=== PATIENT | female | born 2000 | race Caucasian/White ===

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

== ENCOUNTER 2020-03-06 09:48 | Emergency (ER) | payer OTHER ==
[2020-03-06 10:08] VITALS: BP 135/84; PULSE 98
[2020-03-06] MEDS ORDERED: Sodium Chloride 0.9% 1,000 ML IV STA (10:13)
[2020-03-06] MEDS ORDERED: Sodium Chloride 0.9% 10 ML Syringe FLUSH PRN (10:13)
[2020-03-06] MEDS ORDERED: Ondansetron 4 MG/2 ML SDV IVPUSH ONE (10:13)
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
--- NOTE | 2020-03-06 11:40 | CT ---
Head CT Technique: Multiple axial sections through the brain were obtained. Intravenous contrast was not utilized. Comparison: No prior intracranial imaging is available. Findings: Ventricles along with basal cisterns and sulci over the convexities are within normal limits for the patient's age. No abnormal parenchymal densities are seen. No evidence of intracranial hemorrhage. No midline shift or mass-effect is seen. Bone window settings were reviewed. No acute calvarial finding is seen. Visualized paranasal sinuses and mastoid sinuses show nothing acute. Impression: 1. Nothing acute is identified on noncontrast head CT exam. Diagnostic code #1 This report was dictated in MDT
== END 2020-03-06 12:23 | disposition home or self-care (01) ==
LOC: JD.ED 09:48
DX: S09.90XA Unspecified injury of head, initial encounter (principal); R74.8 Abnormal levels of other serum enzymes; R11.2 Nausea with vomiting, unspecified; V89.2XXA Person injured in unspecified motor-vehicle accident, traffic, initial encounter
CPT/HCPCS: 36415; 70450; 80053; 81001; 83690; 84703; 85025; 96361; 96374; 99284; A9270; J2405; J7030

== ENCOUNTER 2020-12-01 19:15 | Emergency (ER) | payer SELFPAY ==
[2020-12-01 19:36] VITALS: BP 126/89; PULSE 95
--- NOTE | 2020-12-01 19:53 | EDM.PDOC ---
ED HPI GENERAL MEDICAL PROBLEM - General Chief Complaint: Gastrointestinal Problem Stated Complaint: VOMITING Time Seen by Provider: 12/01/20 19:52 - History of Present Illness INITIAL COMMENTS - FREE TEXT/NARRATIVE: 20-year-old female presents the emergency room with nausea vomiting abdominal pain. This started yesterday she started out feeling lightheaded and nauseated lost all her appetite yesterday. Today she has been unable to keep anything down and is vomited frequently several times an hour. She is also had lots of loose stools. She has some abdominal discomfort usually associated with loose stools and vomiting. She is not aware of any fevers or chills. Abdomen Pain Score (Numeric/FACES): 6 - Related Data Allergies Allergy/AdvReac Type Severity Reaction Status Date / Time No Known Allergies Allergy Verified 03/06/20 10:08 Home Meds: Home Meds Ondansetron [Zofran ODT] 4 mg PO Q6H PRN #20 tab.dis 03/06/20 [Rx] Ondansetron [Zofran ODT] 4 mg PO Q6H PRN #12 tab.dis 12/01/20 [Rx] Past Medical History - Past Health History Medical/Surgical History: Denies Medical/Surgical History Social & Family History - Family History Family Medical History: No Pertinent Family History - Tobacco Use Tobacco Use Status *Q: Never Tobacco User - Caffeine Use Caffeine Use: Reports: Tea - Recreational Drug Use Recreational Drug Type: Reports: Marijuana/Hashish Recreational Drug Use Frequency: Monthly ED ROS GENERAL - Review of Systems Review Of Systems: See Below Constitutional: Reports: Weakness, Fatigue, Decreased Appetite. Denies: Fever, Chills HEENT: Reports: No Symptoms Respiratory: Reports: No Symptoms Cardiovascular: Reports: No Symptoms Endocrine: Reports: No Symptoms GI/Abdominal: Reports: Abdominal Pain, Diarrhea, Nausea, Vomiting Musculoskeletal: Reports: No Symptoms Skin: Reports: No Symptoms Neurological: Reports: No Symptoms Psychiatric: Reports: No Symptoms Hematologic/Lymphatic: Reports: No Symptoms Immunologic: Reports: No Symptoms ED EXAM, GI/ABD - Physical Exam Exam: See Below Exam Limited By: No Limitations General Appearance: Alert, No Apparent Distress Head: Atraumatic, Normocephalic Neck: Normal Inspection, Supple, Non-Tender, Full Range of Motion Respiratory/Chest: No Respiratory Distress, Lungs Clear, Normal Breath Sounds Cardiovascular: Regular Rate, Rhythm, No Edema, No Murmur GI/Abdominal Exam: Normal Bowel Sounds, Soft, Other (Diffuse tenderness slightly worse in the right lower quadrant compared to the upper quadrants left lower quadrant is nontender no rigidity rebound or guarding appreciated on initial exam) Back Exam: Normal Inspection. No: CVA Tenderness (L), CVA Tenderness (R) Extremities: Normal Inspection, Normal Range of Motion Neurological: Alert, Oriented Skin Exam: Warm, Dry, Intact Course - Vital Signs Last Recorded V/S: Last Vital Signs Temp 36.5 C 12/01/20 19:34 Pulse 95 12/01/20 19:34 Resp 20 12/01/20 19:34 BP 126/89 12/01/20 19:34 Pulse Ox 100 12/01/20 19:34 - Orders/Labs/Meds Labs: Laboratory Tests 12/01/20 12/01/20 12/01/20 Range/Units 20:30 20:30 20:30 WBC 13.62 H (3.98-10.04) K/mm3 RBC 4.69 (3.98-5.22) M/mm3 Hgb 14.2 (11.2-15.7) gm/dl Hct 41.4 (34.1-44.9) % MCV 88.3 (79.4-94.8) fl MCH 30.3 (25.6-32.2) pg MCHC 34.3 (32.2-35.5) g/dl RDW Std Deviation 39.5 (36.4-46.3) fL Plt Count 320 (182-369) K/mm3 MPV 9.5 (9.4-12.3) fl Neut % (Auto) 91.1 H (34.0-71.1) % Lymph % (Auto) 5.4 L (19.3-51.7) % [place] % (Auto) 3.3 L (4.7-12.5) % Eos % (Auto) 0 L (0.7-5.8) Baso % (Auto) 0.1 (0.1-1.2) % Neut # (Auto) 12.40 H (1.56-6.13) K/mm3 Lymph # (Auto) 0.73 L (1.18-3.74) K/mm3 [place] # (Auto) 0.45 H (0.24-0.36) K/mm3 Eos # (Auto) 0.00 L (0.04-0.36) K/mm3 Baso # (Auto) 0.02 (0.01-0.08) K/mm3 Manual Slide Review Abnormal smear Sodium 140 (136-145) mEq/L Potassium 3.9 (3.5-5.1) mEq/L Chloride 104 (98-107) mEq/L Carbon Dioxide 23 (21-32) mEq/L Anion Gap 16.9 H (5-15) BUN 12 (7-18) mg/dL Creatinine 0.8 (0.55-1.02) mg/dL Est Cr Clr Drug Dosing 96.06 mL/min Estimated GFR (MDRD) > 60 (>60) mL/min BUN/Creatinine Ratio 15.0 (14-18) Glucose 139 H (74-106) mg/dL Calcium 9.6 (8.5-10.1) mg/dL Total Bilirubin 1.6 H (0.2-1.0) mg/dL AST 15 (15-37) U/L ALT 24 (14-59) U/L Alkaline Phosphatase 106 (46-116) U/L Total Protein 7.5 (6.4-8.2) g/dl Albumin 3.9 (3.4-5.0) g/dl Globulin 3.6 gm/dL Albumin/Globulin Ratio 1.1 (1-2) Lipase 59 L (73-393) U/L HCG, Qual Negative (NEGATIVE) Urine Color (Yellow) Urine Appearance (Clear) Urine pH (5.0-8.0) Ur Specific [place] (1.005-1.030) Urine Protein (Negative) Urine Glucose (UA) (Negative) Urine Ketones (Negative) Urine Occult Blood (Negative) Urine Nitrite (Negative) Urine Bilirubin (Negative) Urine Urobilinogen (0.2-1.0) Ur Leukocyte Esterase (Negative) Urine RBC (0-5) /hpf Urine WBC (0-5) /hpf Ur Squamous Epith Cells (0-5) /hpf Urine Bacteria (FEW) /hpf Urine Mucus (FEW) /hpf 03// Range/Units 21:03 WBC (3.98-10.04) K/mm3 RBC (3.98-5.22) M/mm3 Hgb (11.2-15.7) gm/dl Hct (34.1-44.9) % MCV (79.4-94.8) fl MCH (25.6-32.2) pg MCHC (32.2-35.5) g/dl RDW Std Deviation (36.4-46.3) fL Plt Count (182-369) K/mm3 MPV (9.4-12.3) fl Neut % (Auto) (34.0-71.1) % Lymph % (Auto) (19.3-51.7) % [place] % (Auto) (4.7-12.5) % Eos % (Auto) (0.7-5.8) Baso % (Auto) (0.1-1.2) % Neut # (Auto) (1.56-6.13) K/mm3 Lymph # (Auto) (1.18-3.74) K/mm3 [place] # (Auto) (0.24-0.36) K/mm3 Eos # (Auto) (0.04-0.36) K/mm3 Baso # (Auto) (0.01-0.08) K/mm3 Manual Slide Review Sodium (136-145) mEq/L Potassium (3.5-5.1) mEq/L Chloride (98-107) mEq/L Carbon Dioxide (21-32) mEq/L Anion Gap (5-15) BUN (7-18) mg/dL Creatinine (0.55-1.02) mg/dL Est Cr Clr Drug Dosing mL/min Estimated GFR (MDRD) (>60) mL/min BUN/Creatinine Ratio (14-18) Glucose (74-106) mg/dL Calcium (8.5-10.1) mg/dL Total Bilirubin (0.2-1.0) mg/dL AST (15-37) U/L ALT (14-59) U/L Alkaline Phosphatase (46-116) U/L Total Protein (6.4-8.2) g/dl Albumin (3.4-5.0) g/dl Globulin gm/dL Albumin/Globulin Ratio (1-2) Lipase (73-393) U/L HCG, Qual (NEGATIVE) Urine Color Yellow (Yellow) Urine Appearance Clear (Clear) Urine pH 6.0 (5.0-8.0) Ur Specific [place] > or = 1.030 (1.005-1.030) Urine Protein 1+ H (Negative) Urine Glucose (UA) Negative (Negative) Urine Ketones 3+ H (Negative) Urine Occult Blood Negative (Negative) Urine Nitrite Negative (Negative) Urine Bilirubin 1+ H (Negative) Urine Urobilinogen 0.2 (0.2-1.0) Ur Leukocyte Esterase Negative (Negative) Urine RBC 0-5 (0-5) /hpf Urine WBC 0-5 (0-5) /hpf Ur Squamous Epith Cells 0-5 (0-5) /hpf Urine Bacteria Few (FEW) /hpf Urine Mucus Moderate H (FEW) /hpf Meds: Medications Discontinued Medications Generic Name Dose Route Start Last Admin Trade Name Shiva PRN Reason Stop Dose Admin Lactated Ringer's 1,000 mls @ 999 mls/hr 12/01/20 20:02 12/01/20 20:16 Ringers, Lactated IV 12/01/20 21:02 999 mls/hr .BOLUS ONE Administration Lactated Ringer's 1,000 mls @ 999 mls/hr 12/01/20 21:19 12/01/20 21:40 Ringers, Lactated IV 12/01/20 22:19 999 mls/hr .BOLUS ONE Administration Ondansetron HCl 4 mg 12/01/20 20:02 12/01/20 20:16 Zofran IVPUSH 12/01/20 20:03 4 mg ONETIME ONE Administration Ondansetron HCl 4 mg 12/01/20 21:13 12/01/20 21:37 Zofran IVPUSH 12/01/20 21:14 4 mg ONETIME ONE Administration - Re-Assessments/Exams Free Text/Narrative Re-Assessment/Exam: 12/01/20 20:36 Labs obtained we will start an IV she needs fluids because she is not eating or drinking symptomatically orthostatic as she gets lightheaded when she tries to move around. 12/01/20 21:14 Patient is doing better not great nausea is returning we will give another dose of Zofran repeat abdominal exam shows active bowel sounds mild discomfort with palpation not much change. We will give some more Zofran and see how she is doing. Her anion gap is elevated 16.9 we will give a second liter of fluid. 12/01/20 22:31 Repeat abdominal exam shows active bowel sounds soft minimal tenderness nothing resembling rebound or guarding certainly nonrigid. Discussed the situation with the patient she is think she will do okay at home she has some Zofran at home at least enough to get her through the night. I will can give her a prescription for tomorrow. She understands to return to the emergency room with any questions problems worsening symptoms worsening nausea vomiting or abdominal pain. Departure - Departure Time of Disposition: 22:32 Disposition: Home, Self-Care 01 Clinical Impression: Gastroenteritis - Discharge Information Referrals: PCP,None [Primary Care Provider] - Forms: ED Department Discharge Additional Instructions: Return to the emergency room with any questions problems or worsening symptoms. Return if the nausea and vomiting is getting worse or worsening abdominal pain. Clear liquid diet for the next 24 hours then slowly advance as tolerated. Use the nausea medication 1 4 times a day to control your nausea and vomiting. I sent a prescription to [facility] in [place]. Establish with a local healthcare provider and follow-up Saturday. The phone number to the hospital clinic is [phone]. Sepsis Event Note (ED) - Evaluation Sepsis Screening Result: No Definite Risk - Focused Exam Vital Signs: Vital Signs Temp Pulse Resp BP Pulse Ox 12/01/20 19:34 36.5 C 95 20 126/89 100
[2020-12-01] MEDS ORDERED: Lactated Ringers 1,000 ML IV ONE ×2 (20:02→21:19)
[2020-12-01] MEDS ORDERED: Ondansetron 4 MG/2 ML SDV IVPUSH ONE ×2 (20:02→21:13)
== END 2020-12-01 22:44 | disposition home or self-care (01) ==
LOC: JD.ED 19:15
DX: K52.9 Noninfective gastroenteritis and colitis, unspecified (principal)
CPT/HCPCS: 36415; 80053; 81001; 83690; 84703; 85025; 96374; 96376; 99284; J2405; J7120; 99283

== ENCOUNTER 2020-12-20 17:42 | Emergency (ER) | payer SELFPAY ==
[2020-12-20] MEDS ORDERED: Metoclopramide 10 MG/2 ML SDV IVPUSH ONE (18:04)
--- NOTE | 2020-12-20 18:04 | EDM.PDOC ---
<Mago Boston - Last Filed: 12/20/20 20:47> ED HPI GENERAL MEDICAL PROBLEM - General Chief Complaint: Gastrointestinal Problem Stated Complaint: VOMITING Time Seen by Provider: 12/20/20 17:57 - Related Data Allergies Allergy/AdvReac Type Severity Reaction Status Date / Time No Known Allergies Allergy Verified 12/20/20 17:52 Home Meds: Home Meds Dicyclomine [Bentyl] 20 mg PO Q6H PRN #5 tab 12/20/20 [Rx] Ondansetron [Zofran ODT] 4 mg PO Q6H PRN #10 tab.dis 12/20/20 [Rx] Course - Re-Assessments/Exams Free Text/Narrative Re-Assessment/Exam: 12/20/20 19:17 Care of the patient assumed from Dr. Stevenson. CMP was significant for anion gap minimally elevated at 16.8, total bili 2.0. Blood work was otherwise unremarkable. CRP is normal. Electrolytes are normal. Patient had one episode of vomiting after the Reglan and has not vomited since, however she states she does feel nauseous. I have ordered Zofran 4 mg IV to be given. IV fluids are still infusing. 12/20/20 20:45 Patient has had no further vomiting and she has been able to keep down ice and Gatorade. We will discharge her home. Discharge instructions completed by Dr. Stevenson. Dr. Stevenson had signed paper prescriptions, however I did cancel these and submit electronic prescriptions as the pharmacy closes soon. That with the prescription can be ready once she gets there. Departure - Departure Time of Disposition: 20:45 Disposition: Home, Self-Care 01 Clinical Impression: Viral gastroenteritis - Discharge Information Prescriptions: Dicyclomine [Bentyl] 20 mg PO Q6H PRN #5 tab PRN Reason: Abdominal Pain Ondansetron [Zofran ODT] 4 mg PO Q6H PRN #10 tab.dis PRN Reason: Nausea/Vomiting Instructions: Viral Gastroenteritis, Adult, [id number] Referrals: PCP,None [Primary Care Provider] - Forms: ED Department Discharge, ED Return to Work/School Form Additional Instructions: Evaluation the emergency room today in regards to acute onset of viral gastroenteritis or stomach flu causing nausea vomiting and diarrhea. You were treated with intravenous fluid replacement and medication Reglan 7.5 mg IV for nausea relief. Suggest at home sipping on Gatorade or Powerade ideally 5 ounces per hour. When hungry try soda crackers first. If tolerated may try white bread with jam on it. After that may advance to chicken noodle soup for turkey rice soup etc. May use Zofran 4 mg under the tongue every 4-6 hours necessary for nausea or vomiting relief. Bentyl 20 mg by mouth every 6 hours as needed to relieve abdominal cramping pain and lessen diarrhea. <Matt Stevenson - Last Filed: 12/22/20 18:57> ED HPI GENERAL MEDICAL PROBLEM - General Source of Information: Reports: Patient History Limitations: Reports: No Limitations - History of Present Illness INITIAL COMMENTS - FREE TEXT/NARRATIVE: 20-year-old female presents to the ED with intractable nausea and vomiting starting shortly after 0600 hrs. this morning. When she awoke she did not feel well and she started vomiting about 0700 hrs. She estimates she has vomited at least 12 times since that time. Nothing will stay down all day long. She is also developed some diffuse lower abdominal cramping pain and about 4-5 loose diarrhea stools which are fairly low volume. She can't member eating out yesterday that would've exposure to bad food. No one else at home is ill. Feels like she might be running a low-grade fever and has had some chills today as well. Denies any dysuria. Denies any cough or sputum production. Denies any hemoptysis or blood per rectum. She states that the nausea is constant and not necessarily improved by vomiting which has been mostly dry heaves the last 6 hours . She denies any possibility of . Onset: Today, Sudden Onset Date: 12/20/20 Onset Time: 06:00 Duration: Hour(s):, Constant Location: Reports: Abdomen (Intractable nausea and vomiting with diarrhea) Quality: Reports: Other (Intractable nausea and vomiting with diarrhea) Severity: Moderate Improves with: Reports: None Worsens with: Reports: Other Context: Denies: Activity (To drink anything makes things worse.), Exercise, Lifting, Sick Contact, Trauma, Other Associated Symptoms: Reports: Fever/Chills (Chills but no defined fever.), Loss of Appetite, Malaise, Nausea/Vomiting (Recurrent nausea and vomiting), Weakness ( x12 hours generalized weakness). Denies: No Other Symptoms, Confusion, Chest Pain, Cough, cough w sputum, Diaphoresis, Rash, Seizure, Shortness of Breath, Syncope Treatments COAL CHEMIST: Reports: Other (see below) (None is nothing will stay down.) Past Medical History - Past Health History Medical/Surgical History: Denies Medical/Surgical History Social & Family History - Family History Family Medical History: No Pertinent Family History - Tobacco Use Tobacco Use Status *Q: Never Tobacco User - Caffeine Use Caffeine Use: Reports: Tea - Recreational Drug Use Recreational Drug Use: No - Living Situation & Occupation Living situation: Reports: Single Occupation: Employed ED ROS GENERAL - Review of Systems Review Of Systems: See Below Constitutional: Reports: Chills, Malaise, Weakness, Fatigue, Decreased Appetite. Denies: Fever HEENT: Reports: No Symptoms Respiratory: Reports: No Symptoms Cardiovascular: Reports: No Symptoms Endocrine: Reports: No Symptoms GI/Abdominal: Reports: Abdominal Pain, Diarrhea (She estimates 4-5 loose diarrhea stools today.), Nausea (Epigastric abdominal pain occasional lower abdominal cramping pain before diarrhea.), Vomiting. Denies: Hematemesis, Hem atochezia : Reports: No Symptoms Musculoskeletal: Reports: No Symptoms Skin: Reports: No Symptoms Neurological: Reports: No Symptoms Psychiatric: Reports: No Symptoms Hematologic/Lymphatic: Reports: No Symptoms Immunologic: Reports: No Symptoms ED EXAM, GI/ABD - Physical Exam Exam: See Below Exam Limited By: No Limitations General Appearance: Alert, WD/WN, Lethargic, Mild Distress, Other (Appears ill. Temperature is 37.3 degrees) Eyes: Bilateral: Normal Appearance (No blepharal pallor or scleral icterus.) Throat/Mouth: Normal Inspection, Normal Lips, Normal Oropharynx, Other (Tongue is dry and coated.) Head: Atraumatic, Normocephalic Neck: Normal Inspection, Supple, Non-Tender, Full Range of Motion. No: Lymphadenopathy (L), Lymphadenopathy (R) Respiratory/Chest: No Respiratory Distress, Lungs Clear, Normal Breath Sounds, No Accessory Muscle Use Cardiovascular: Normal Peripheral Pulses, Regular Rate, Rhythm, No Edema, No Gallop, No Murmur, No Rub GI/Abdominal Exam: Soft, No Organomegaly, Tender, Abnormal Bowel Sounds (Bowel sounds are very quiesced sent in all 4 quadrants.). No: Guarding (Tender epigastrium.), Rigid, Rebound Back Exam: Normal Inspection, Full Range of Motion. No: CVA Tenderness (L), CVA Tenderness (R) Extremities: Normal Inspection, Normal Range of Motion, Non-Tender, No Pedal Edema, Normal Capillary Refill Neurological: Alert, Oriented, CN II-XII Intact, Normal Cognition Psychiatric: Normal Affect, Normal Mood, Other Skin Exam: Warm, Dry (Appears ill.), Intact, Normal Color, No Rash Course - Vital Signs Last Recorded V/S: Last Vital Signs Temp 37.3 C 12/20/20 17:49 Pulse 104 H 12/20/20 20:30 Resp 18 12/20/20 20:30 BP 122/83 12/20/20 20:30 Pulse Ox 99 12/20/20 20:30 - Orders/Labs/Meds Labs: Laboratory Tests 12/20/20 12/20/20 12/20/20 Range/Units 18:15 18:20 18:20 WBC 16.40 H (3.98-10.04) K/mm3 RBC 4.89 (3.98-5.22) M/mm3 Hgb 14.6 (11.2-15.7) gm/dl Hct 43.1 (34.1-44.9) % MCV 88.1 (79.4-94.8) fl MCH 29.9 (25.6-32.2) pg MCHC 33.9 (32.2-35.5) g/dl RDW Std Deviation 41.9 (36.4-46.3) fL Plt Count 369 (182-369) K/mm3 MPV 9.5 (9.4-12.3) fl Neut % (Auto) 92.7 H (34.0-71.1) % Lymph % (Auto) 4.8 L (19.3-51.7) % [place] % (Auto) 2.2 L (4.7-12.5) % Eos % (Auto) 0 L (0.7-5.8) Baso % (Auto) 0.1 (0.1-1.2) % Neut # (Auto) 15.22 H (1.56-6.13) K/mm3 Lymph # (Auto) 0.78 L (1.18-3.74) K/mm3 [place] # (Auto) 0.36 (0.24-0.36) K/mm3 Eos # (Auto) 0.00 L (0.04-0.36) K/mm3 Baso # (Auto) 0.01 (0.01-0.08) K/mm3 Sodium 141 (136-145) mEq/L Potassium 3.8 (3.5-5.1) mEq/L Chloride 103 (98-107) mEq/L Carbon Dioxide 25 (21-32) mEq/L Anion Gap 16.8 H (5-15) BUN 11 (7-18) mg/dL Creatinine 0.7 (0.55-1.02) mg/dL Est Cr Clr Drug Dosing 109.78 mL/min Estimated GFR (MDRD) > 60 (>60) mL/min BUN/Creatinine Ratio 15.7 (14-18) Glucose 135 H (74-106) mg/dL Calcium 9.6 (8.5-10.1) mg/dL Total Bilirubin 2.0 H (0.2-1.0) mg/dL AST 26 (15-37) U/L ALT 38 (14-59) U/L Alkaline Phosphatase 103 (46-116) U/L C-Reactive Protein 0.2 (<1.0) mg/dL Total Protein 7.8 (6.4-8.2) g/dl Albumin 4.1 (3.4-5.0) g/dl Globulin 3.7 gm/dL Albumin/Globulin Ratio 1.1 (1-2) Urine Color Yellow (Yellow) Urine Appearance Clear (Clear) Urine pH 6.0 (5.0-8.0) Ur Specific [place] > or = 1.030 (1.005-1.030) Urine Protein Negative (Negative) Urine Glucose (UA) 2+ H (Negative) Urine Ketones 3+ H (Negative) Urine Occult Blood 3+ H (Negative) Urine Nitrite Negative (Negative) Urine Bilirubin Negative (Negative) Urine Urobilinogen 0.2 (0.2-1.0) Ur Leukocyte Esterase Negative (Negative) Urine RBC 10-20 H (0-5) /hpf Urine WBC 0-5 (0-5) /hpf Ur Squamous Epith Cells 0-5 (0-5) /hpf Urine Bacteria Few (FEW) /hpf Urine Mucus Few (FEW) /hpf Meds: Medications Discontinued Medications Generic Name Dose Route Start Last Admin Trade Name Shiva PRN Reason Stop Dose Admin Dextrose/Lactated Ringer's 1,000 mls @ 999 mls/hr 12/20/20 18:15 12/20/20 18:26 Dextrose 5%-Lactated Ringers IV 999 mls/hr ASDIRECTED DASHAWN Administration Metoclopramide HCl 7.5 mg 12/20/20 18:04 12/20/20 18:24 Metoclopramide 10 Mg/2 Ml Sdv IVPUSH 12/20/20 18:05 7.5 mg ONETIME ONE Administration Ondansetron HCl 4 mg 12/20/20 19:14 12/20/20 19:22 Ondansetron 4 Mg/2 Ml Sdv IVPUSH 12/20/20 19:15 4 mg ONETIME ONE Administration - Radiology Interpretation Free Text/Narrative:: 20-year-old female presents ED with intractable nausea and vomiting starting shortly after waking up this morning. She woke up around 0600 hrs. and did not feel well. By 0700 hrs. she started to vomit. She estimates she is via between 12 and 15 times initially with bilious emesis and subsequently more dry heaves or water that she tries to drink. She also developed mild diarrhea 4-5 times loose yellow stool of low volume. No blood in emesis or diarrhea. She does have a low-grade fever of 37.1. She does not take any home medications. Plan D5 Ringer's lactate at open. Reglan 7.5 mg IV for nausea relief. Routine labs to be performed and a urinalysis if one becomes available. - Re-Assessments/Exams Free Text/Narrative Re-Assessment/Exam: 12/20/20 18:50 Hematology reveals a elevated white count of 16.40 with 92.7% neutrophils. Hemoglobin is 14.6 with hematocrit of 43.1 platelet count is normal at 369,000.Care will be turned over to COMPUTER SYSTEMS INTEGRATOR Mago Boston. Discharge summary and prescriptions have written for discharge. Departure - Departure Condition: Fair - Discharge Information *PRESCRIPTION DRUG MONITORING PROGRAM REVIEWED*: Not Applicable *COPY OF PRESCRIPTION DRUG MONITORING REPORT IN PATIENT ROCHELLE: Not Applicable Sepsis Event Note (ED) - Evaluation Sepsis Screening Result: No Definite Risk
[2020-12-20] MEDS ORDERED: Dextrose 5%-Lactated Ringers 1,000 ML IV SCH (18:15)
[2020-12-20] MEDS ORDERED: Ondansetron 4 MG/2 ML SDV IVPUSH ONE (19:14)
[2020-12-20 21:18] VITALS: BP 122/83; PULSE 104
== END 2020-12-20 21:01 | disposition home or self-care (01) ==
LOC: JD.ED 17:42
DX: A08.4 Viral intestinal infection, unspecified (principal)
CPT/HCPCS: 36415; 80053; 81001; 85025; 86140; 96374; 96375; 99284; J2405; J2765; J7121; 99283

== ENCOUNTER 2020-12-29 21:34 | Emergency (ER) | payer SELFPAY ==
[2020-12-29 21:51] VITALS: BP 140/83; PULSE 91
[2020-12-29] MEDS ORDERED: Sodium Chloride 0.9% 1,000 ML IV SCH (22:00)
--- NOTE | 2020-12-29 23:01 | EDM.PDOC ---
ED HPI GENERAL MEDICAL PROBLEM - General Chief Complaint: Gastrointestinal Problem Stated Complaint: THROWING UP ALL DAY Time Seen by Provider: 12/29/20 21:36 Source of Information: Reports: Patient History Limitations: Reports: No Limitations - History of Present Illness INITIAL COMMENTS - FREE TEXT/NARRATIVE: The patient is come in with a complaint of vomiting. She says she has not been able to hold anything down all day. She has been seen twice prior to this in the not too distant past. There are no readily identified risk factors. Patient not sure of the last menstrual period. She is a non-smoker. Presumably she has not taken any drug or other measure to moderate symptoms prior to arrival. Abdominal Pain Score (Numeric/FACES): 4 - Related Data Allergies Allergy/AdvReac Type Severity Reaction Status Date / Time No Known Allergies Allergy Verified 12/29/20 21:51 Home Meds: Home Meds Dicyclomine [Bentyl] 20 mg PO Q6H PRN #5 tab 12/20/20 [Rx] Ondansetron [Zofran ODT] 4 mg PO Q6H PRN #10 tab.dis 12/20/20 [Rx] Past Medical History - Past Health History Medical/Surgical History: Denies Medical/Surgical History Social & Family History - Family History Family Medical History: No Pertinent Family History - Tobacco Use Tobacco Use Status *Q: Never Tobacco User - Caffeine Use Caffeine Use: Reports: None - Recreational Drug Use Recreational Drug Use: Yes Recreational Drug Type: Reports: Marijuana/Hashish Recreational Drug Use Frequency: Weekly - Living Situation & Occupation Living situation: Reports: Single Occupation: Employed ED ROS GENERAL - Review of Systems Review Of Systems: Comprehensive ROS is negative, except as noted in HPI. ED EXAM, GI/ABD - Physical Exam Exam: See Below Text/Narrative:: Is alert and in no distress. Skin is warm and dry with normal turgor. Head normocephalic atraumatic. PERRLA EOMI. Neck is supple without jugular venous distention. Lungs are clear. Heart is regular. Abdomen is soft and nontender without guarding or rebound. There is no flank tenderness. Neurologically there is no deficit of sensory or motor function. There is no peripheral edema cyanosis or clubbing of the digits. Patient seems a little withdrawn at time of exam. Course - Vital Signs Text/Narrative:: The patient was uncooperative with efforts to start IV fluids. He was a bit inappropriate in her interactions with nursing staff. She did not wish to have any further efforts to help her and wished to be discharged. As the patient was composed without destructive intent, suicidal or homicidal ideation, oriented x3, and without a condition that seemed life-threatening or in danger of becoming a serious illness she was discharged at her request. Last Recorded V/S: Last Vital Signs Temp 36.5 C 12/29/20 21:48 Pulse 91 12/29/20 21:48 Resp 18 12/29/20 21:48 BP 140/83 12/29/20 21:48 Pulse Ox 99 12/29/20 21:48 - Orders/Labs/Meds Orders: Active Orders 24 hr Category Date Time Status CBC WITH MANUAL DIFF [HEME] Stat Lab 12/29/20 21:59 Ordered COMPREHENSIVE METABOLIC PN,CMP [CHEM] Stat Lab 12/29/20 21:59 Ordered HCG QUALITATIVE,URINE [URCHEM] Stat Lab 12/29/20 21:59 Ordered UA RFX VAL AND CULT IF INDIC [URIN] Stat Lab 12/29/20 21:59 Ordered Sodium Chloride 0.9% [Normal Saline] 1,000 ml Med 12/29/20 22:00 Active IV ASDIRECTED Medication Orders Sodium Chloride (Normal Saline) 1,000 mls @ 150 mls/hr IV ASDIRECTED [facility] Meds: Medications Generic Name Dose Route Start Last Admin Trade Name Freq PRN Reason Stop Dose Admin Sodium Chloride 1,000 mls @ 150 mls/hr 12/29/20 22:00 Normal Saline IV ASDIRECTED [facility] Departure - Departure Time of Disposition: 23:01 Disposition: Home, Self-Care 01 Condition: Good Clinical Impression: Recurrent vomiting, Uncooperative behavior - Discharge Information Referrals: PCP,None [Primary Care Provider] - Additional Instructions: At your request you have been discharged without a full work-up or intervention. As you are stable and without an apparent life or health threatening situation you are discharged. With the recurrent vomiting you are at risk for becoming dehydrated and you are urged to return at any time for further evaluation and treatment. Sepsis Event Note (ED) - Evaluation Sepsis Screening Result: No Definite Risk - Focused Exam Vital Signs: Vital Signs Temp Pulse Resp BP Pulse Ox 12/29/20 21:48 36.5 C 91 18 140/83 99 - My Orders Last 24 Hours: My Active Orders 12/29/20 21:59 CBC WITH MANUAL DIFF [HEME] Stat COMPREHENSIVE METABOLIC PN,CMP [CHEM] Stat HCG QUALITATIVE,URINE [URCHEM] Stat UA RFX VAL AND CULT IF INDIC [URIN] Stat 12/29/20 22:00 Sodium Chloride 0.9% [Normal Saline] 1,000 ml IV ASDIRECTED - Assessment/Plan Last 24 Hours: My Active Orders 12/29/20 21:59 CBC WITH MANUAL DIFF [HEME] Stat COMPREHENSIVE METABOLIC PN,CMP [CHEM] Stat HCG QUALITATIVE,URINE [URCHEM] Stat UA RFX VAL AND CULT IF INDIC [URIN] Stat 12/29/20 22:00 Sodium Chloride 0.9% [Normal Saline] 1,000 ml IV ASDIRECTED
== END 2020-12-29 22:35 | disposition left against medical advice (07) ==
LOC: JD.ED 21:34
DX: R11.10 Vomiting, unspecified (principal); F91.9 Conduct disorder, unspecified
CPT/HCPCS: 99283; 99284

== ENCOUNTER 2021-06-19 17:28 | Emergency (ER) | payer BC ==
[2021-06-19 18:53] VITALS: BP 148/70; PULSE 69
== END 2021-06-19 20:00 | disposition left against medical advice (07) ==
LOC: JD.ED 17:28
DX: Z53.21 Procedure and treatment not carried out due to patient leaving prior to being seen by health care provider (principal)

== ENCOUNTER 2021-06-22 18:49 | Emergency (ER) | payer BC ==
[2021-06-22 18:57] VITALS: BP 152/78; PULSE 92
--- NOTE | 2021-06-22 19:15 | EDM.PDOC ---
ED HPI GENERAL MEDICAL PROBLEM - General Chief Complaint: Gastrointestinal Problem Stated Complaint: VOMITING/DIARRHEA Time Seen by Provider: 06/22/21 19:15 - History of Present Illness INITIAL COMMENTS - FREE TEXT/NARRATIVE: 20-year-old female presents the emergency room with nausea vomiting and not feeling well. This is been getting worse over the last several days. She cannot keep anything down. Patient has had problems with nausea and vomiting in the past. She denies any illicit drug use no marijuana. She is recently been tested for Covid. This started up a couple of days ago and progressively gotten worse. She does not have a lot of abdominal pain with it but she is very uncomfortable with the nausea and vomiting. She has been using Zofran at home and this is not working she is given a time to dissolve. She is not aware of any fevers or chills. She has not had any bloody or crampy diarrhea. She denies being she had no burning or frequency associated with urination. Abdomen Pain Score (Numeric/FACES): 5 - Related Data Allergies Allergy/AdvReac Type Severity Reaction Status Date / Time No Known Allergies Allergy Verified 06/22/21 19:40 Home Meds: Home Meds medroxyPROGESTERone Acetate [Depo-Provera] 150 mg IM ASDIRECTED 06/19/21 [History] Potassium Chloride 20 meq PO BID #8 packet 06/22/21 [Rx] ondansetron HCL [Zofran] 4 mg SL ASDIRECTED 06/22/21 [History] Past Medical History - Past Health History Medical/Surgical History: Denies Medical/Surgical History Social & Family History - Family History Family Medical History: No Pertinent Family History - Caffeine Use Caffeine Use: Reports: None - Living Situation & Occupation Living situation: Reports: Single Occupation: Employed ED ROS GENERAL - Review of Systems Review Of Systems: See Below HEENT: Reports: No Symptoms Respiratory: Reports: No Symptoms Cardiovascular: Reports: No Symptoms Endocrine: Reports: No Symptoms GI/Abdominal: Reports: No Symptoms, Diarrhea, Nausea, Vomiting. Denies: Abdominal Pain, Constipation : Reports: No Symptoms Musculoskeletal: Reports: No Symptoms Skin: Reports: No Symptoms, Other Neurological: Reports: No Symptoms Psychiatric: Reports: No Symptoms ED EXAM, GENERAL - Physical Exam Exam: See Below Exam Limited By: No Limitations General Appearance: Alert, No Apparent Distress Head: Atraumatic, Normocephalic Neck: Normal Inspection, Supple, Non-Tender, Full Range of Motion Respiratory/Chest: No Respiratory Distress, Lungs Clear, Normal Breath Sounds, No Accessory Muscle Use, Chest Non-Tender Cardiovascular: Normal Peripheral Pulses, Regular Rate, Rhythm, No Edema, No Gallop, No JVD, No Murmur, No Rub GI/Abdominal: Normal Bowel Sounds, Soft, Non-Tender, Other ([place] tenderness with palpation no rigidity rebound or guarding noted). No: Guarding, Rigid, Rebound Back Exam: Normal Inspection. No: CVA Tenderness (L), CVA Tenderness (R) Extremities: Normal Inspection Neurological: Alert, Oriented Course - Vital Signs Last Recorded V/S: Last Vital Signs Temp 36.4 C 06/22/21 18:56 Pulse 92 06/22/21 18:56 Resp 16 06/22/21 18:56 BP 152/78 H 06/22/21 18:56 Pulse Ox 98 06/22/21 18:56 - Orders/Labs/Meds Orders: Active Orders 24 hr Category Date Time Status UA RFX VAL AND CULT IF INDIC [URIN] Stat Lab 06/22/21 19:33 Ordered Labs: Laboratory Tests 06/22/21 06/22/21 06/22/21 Range/Units 20:07 20:07 20:07 WBC 14.40 H (3.98-10.04) K/mm3 RBC 5.25 H (3.98-5.22) M/mm3 Hgb 15.7 (11.2-15.7) gm/dl Hct 44.5 (34.1-44.9) % MCV 84.8 D (79.4-94.8) fl MCH 29.9 (25.6-32.2) pg MCHC 35.3 (32.2-35.5) g/dl RDW Std Deviation 39.1 (36.4-46.3) fL Plt Count 398 H (182-369) K/mm3 MPV 9.2 L (9.4-12.3) fl Neut % (Auto) 84.2 H (34.0-71.1) % Lymph % (Auto) 8.6 L (19.3-51.7) % [place] % (Auto) 6.8 (4.7-12.5) % Eos % (Auto) 0.1 L (0.7-5.8) Baso % (Auto) 0.1 (0.1-1.2) % Neut # (Auto) 12.13 H (1.56-6.13) K/mm3 Lymph # (Auto) 1.24 (1.18-3.74) K/mm3 [place] # (Auto) 0.98 H (0.24-0.36) K/mm3 Eos # (Auto) 0.01 L (0.04-0.36) K/mm3 Baso # (Auto) 0.01 (0.01-0.08) K/mm3 Sodium 139 (136-145) mEq/L Potassium 2.8 L (3.5-5.1) mEq/L Chloride 101 (98-107) mEq/L Carbon Dioxide 23 (21-32) mEq/L Anion Gap 17.8 H (5-15) BUN 9 (7-18) mg/dL Creatinine 1.0 (0.55-1.02) mg/dL Est Cr Clr Drug Dosing TNP Estimated GFR (MDRD) > 60 (>60) mL/min BUN/Creatinine Ratio 9.0 L (14-18) Glucose 107 H (70-99) mg/dL Calcium 9.5 (8.5-10.1) mg/dL Total Bilirubin 1.1 H (0.2-1.0) mg/dL AST 23 (15-37) U/L ALT 82 H (14-59) U/L Alkaline Phosphatase 118 H (46-116) U/L Total Protein 8.4 H (6.4-8.2) g/dl Albumin 4.4 (3.4-5.0) g/dl Globulin 4.0 gm/dL Albumin/Globulin Ratio 1.1 (1-2) Lipase 112 (73-393) U/L HCG, Qual Negative (NEGATIVE) Meds: Medications Discontinued Medications Generic Name Dose Route Start Last Admin Trade Name Freq PRN Reason Stop Dose Admin Diphenhydramine HCl 25 mg 06/22/21 19:36 06/22/21 19:55 Diphenhydramine 50 Mg/Ml Sdv IVPUSH 06/22/21 19:37 25 mg ONETIME ONE Administration Lactated Ringer's 1,000 mls @ 999 mls/hr 06/22/21 19:36 06/22/21 19:55 Ringers, Lactated IV 06/22/21 20:36 999 mls/hr .BOLUS ONE Administration Ondansetron HCl 4 mg 06/22/21 19:36 06/22/21 19:55 Ondansetron 4 Mg/2 Ml Sdv IVPUSH 06/22/21 19:37 4 mg ONETIME ONE Administration - Re-Assessments/Exams Free Text/Narrative Re-Assessment/Exam: 06/22/21 19:45 We will start fluids Zofran to see if this controls her nausea and vomiting check labs her abdominal exam thus far is pretty nonspecific. 06/22/21 21:11 She is not getting the best control of her nausea at this point and I was hoping to add to a Reglan. Further complicating the situation is the patient would like to go home now reviewing her labs most concerning is a potassium of 2.8. The patient is insistent on going home I will discharge her with some potassium packets to take 1 twice daily 20 mEq #8 she agrees to get this picked up tonight and start this tonight. She has something else for nausea but cannot recall what it is that which she was given at the clinic and she wants to try this. I offered to give her Reglan and she was not interested Departure - Departure Time of Disposition: 21:14 Disposition: Against Medical Advice 07 Clinical Impression: Hypokalemia Nausea and vomiting Qualifiers: Vomiting type: unspecified Vomiting Intractability: non-intractable Qualified Code(s): R11.2 - Nausea with vomiting, unspecified - Discharge Information Prescriptions: Potassium Chloride 20 meq PO BID #8 packet Referrals: PCP,None [Primary Care Provider] - Forms: ED Department Discharge Additional Instructions: Return to the emergency room with any questions problems or worsening symptoms You been started on some potassium your potassium is dangerously low here in the emergency department take 1 packet twice daily until all gone. These have been sent electronically to the [place] [facility] in [place]. Sepsis Event Note (ED) - Evaluation Sepsis Screening Result: No Definite Risk - Focused Exam Vital Signs: Vital Signs Temp Pulse Resp BP Pulse Ox 06/22/21 18:56 36.4 C 92 16 152/78 H 98 - My Orders Last 24 Hours: My Active Orders 06/22/21 19:33 UA RFX VAL AND CULT IF INDIC [URIN] Stat - Assessment/Plan Last 24 Hours: My Active Orders 06/22/21 19:33 UA RFX VAL AND CULT IF INDIC [URIN] Stat
[2021-06-22] MEDS ORDERED: Lactated Ringers 1,000 ML IV ONE (19:36)
[2021-06-22] MEDS ORDERED: diphenhydrAMINE 50 MG/ML SDV IVPUSH ONE (19:36)
[2021-06-22] MEDS ORDERED: Ondansetron 4 MG/2 ML SDV IVPUSH ONE (19:36)
== END 2021-06-22 21:28 | disposition left against medical advice (07) ==
LOC: JD.ED 18:49
DX: R11.2 Nausea with vomiting, unspecified (principal); E87.6 Hypokalemia
CPT/HCPCS: 36415; 80053; 83690; 84703; 85025; 96361; 96374; 96375; 99284; J1200; J2405; J7120

== ENCOUNTER 2021-08-25 16:39 | Emergency (ER) | payer BC ==
[2021-08-25 17:03] VITALS: BP 127/86; PULSE 88
[2021-08-25] MEDS ORDERED: Ondansetron 4 MG/2 ML SDV IVPUSH ONE (17:19)
[2021-08-25] MEDS ORDERED: Sodium Chloride 0.9% 1,000 ML IV STA (17:19)
[2021-08-25] MEDS ORDERED: Sodium Chloride 0.9% 10 ML Syringe FLUSH PRN (17:19)
[2021-08-25] MEDS ORDERED: HYDROmorphone 1 MG/ML Syringe IVPUSH ONE (17:20)
--- NOTE | 2021-08-25 17:49 | EDM.PDOC ---
<Wilian Vázquez - Last Filed: 08/25/21 18:55> ED HPI GENERAL MEDICAL PROBLEM - General Chief Complaint: Gastrointestinal Problem Stated Complaint: VOMITING Time Seen by Provider: 08/25/21 16:57 Source of Information: Reports: Patient History Limitations: Reports: No Limitations - History of Present Illness INITIAL COMMENTS - FREE TEXT/NARRATIVE: The patient presents with nausea, vomiting, abdominal pain, and diarrhea. This started today. She has a history of this and she has been here multiple times without a clear diagnosis. She has no fever but she has chills. She has no chest pain or shortness of breath. She has no dysuria. She still has her gallbladder and appendix. She does not think she is . Onset: Gradual Duration: Hour(s): Location: Reports: Abdomen Quality: Reports: Sharp Severity: Moderate Improves with: Reports: None Worsens with: Reports: None Associated Symptoms: Reports: Fever/Chills, Nausea/Vomiting. Denies: Cough, Headaches, Shortness of Breath Abdomen Pain Score (Numeric/FACES): 4 - Related Data Allergies Allergy/AdvReac Type Severity Reaction Status Date / Time No Known Allergies Allergy Verified 06/22/21 19:40 Home Meds: Home Meds medroxyPROGESTERone Acetate [Depo-Provera] 150 mg IM ASDIRECTED 06/19/21 [History] Potassium Chloride 20 meq PO BID #8 packet 06/22/21 [Rx] ondansetron HCL [Zofran] 4 mg SL ASDIRECTED 06/22/21 [History] Ondansetron [Ondansetron ODT] 4 mg PO Q6H #10 tab.rapdis 08/25/21 [Rx] Past Medical History - Past Health History Medical/Surgical History: Denies Medical/Surgical History - Infectious Disease History Infectious Disease History: Reports: None Social & Family History - Family History Family Medical History: No Pertinent Family History - Tobacco Use Tobacco Use Status *Q: Never Tobacco User - Caffeine Use Caffeine Use: Reports: Soda, Tea - Recreational Drug Use Recreational Drug Use: No - Living Situation & Occupation Living situation: Reports: Single Occupation: Employed ED ROS GENERAL - Review of Systems Review Of Systems: See Below Constitutional: Reports: Chills. Denies: Fever HEENT: Reports: No Symptoms Respiratory: Reports: No Symptoms Cardiovascular: Reports: No Symptoms Endocrine: Reports: No Symptoms GI/Abdominal: Reports: Abdominal Pain, Diarrhea, Nausea, Vomiting : Reports: No Symptoms Musculoskeletal: Reports: No Symptoms Skin: Reports: No Symptoms ED EXAM, GI/ABD - Physical Exam Exam: See Below Exam Limited By: No Limitations General Appearance: Alert, No Apparent Distress Ears: Normal External Exam Nose: Normal Inspection Head: Atraumatic, Normocephalic Neck: Normal Inspection Respiratory/Chest: No Respiratory Distress, Lungs Clear, Normal Breath Sounds Cardiovascular: Regular Rate, Rhythm, No Edema, No Murmur GI/Abdominal Exam: Soft, No Organomegaly, Tender (Mild generalized tenderness) Course - Re-Assessments/Exams Free Text/Narrative Re-Assessment/Exam: 08/25/21 17:49 I ordered an IV NS 1L bolus, zofran 4mg IV, dilaudid 1mg IV, labs and UA. 08/25/21 18:40 Her WBC is slightly elevated at 10.83. She does not have much abdominal pain and she did not want the dilaudid. She would like some benadryl. I have ordered 50mg IV. 08/25/21 18:55 She feels a little better. I will give her some reglan and see if that helps. 08/25/21 18:56 Her anion gap is elevated at 19.5. Her glucose was elevated at 146. Her lipase was normal. Her HCG is normal. It is change of shift. Dr Rico to take over. Departure - Departure Disposition: Home, Self-Care 01 Clinical Impression: Gastroenteritis Nausea and vomiting Qualifiers: Vomiting type: unspecified Vomiting Intractability: non-intractable Qualified Code(s): R11.2 - Nausea with vomiting, unspecified - Discharge Information Referrals: PCP,None [Primary Care Provider] - Forms: ED Department Discharge Additional Instructions: Return to the emergency room with any questions problems or worsening symptoms. Clear liquid diet for the next 24 hours then slowly advance as tolerated. Follow-up with the clinic as soon as you can get in for recheck. I sent a prescription to the [place] pharmacy in [facility] grocery store for Zofran No. 10 take 1 every 6 hours as needed for nausea and vomiting. <Low Rico - Last Filed: 08/25/21 20:00> Course - Vital Signs Last Recorded V/S: Last Vital Signs Temp 36.2 C 08/25/21 17:00 Pulse 88 08/25/21 17:00 Resp 20 08/25/21 17:00 BP 127/86 08/25/21 17:00 Pulse Ox 97 08/25/21 17:00 - Orders/Labs/Meds Orders: Active Orders 24 hr Category Date Time Status Peripheral IV Care [RC] . DIRECTED Care 08/25/21 17:19 Active UA W/MICROSCOPIC [URIN] Stat Lab 08/25/21 17:19 Ordered Sodium Chloride 0.9% [Saline Flush] Med 08/25/21 17:19 Active 10 ml FLUSH ASDIRECTED PRN ED Antiemetic Medication Reflex [OM.PC] Stat Oth 08/25/21 17:19 Ordered Peripheral IV Insertion Adult [OM.PC] Stat Oth 08/25/21 17:19 Ordered Medication Orders Sodium Chloride (Sodium Chloride 0.9% 10 Ml Syringe) 10 ml FLUSH ASDIRECTED PRN PRN Reason: Keep Vein Open Last Admin: 08/25/21 18:24 Dose: 10 ml Documented by: ARYA Labs: Laboratory Tests 08/25/21 08/25/21 08/25/21 Range/Units 18:05 18:05 18:05 WBC 10.83 H (3.98-10.04) K/mm3 RBC 4.85 (3.98-5.22) M/mm3 Hgb 14.7 (11.2-15.7) gm/dl Hct 42.6 (34.1-44.9) % MCV 87.8 D (79.4-94.8) fl MCH 30.3 (25.6-32.2) pg MCHC 34.5 (32.2-35.5) g/dl RDW Std Deviation 42.5 (36.4-46.3) fL Plt Count 405 H (182-369) K/mm3 MPV 9.0 L (9.4-12.3) fl Neut % (Auto) 87.4 H (34.0-71.1) % Lymph % (Auto) 6.6 L (19.3-51.7) % [place] % (Auto) 5.7 (4.7-12.5) % Eos % (Auto) 0 L (0.7-5.8) Baso % (Auto) 0.1 (0.1-1.2) % Neut # (Auto) 9.47 H (1.56-6.13) K/mm3 Lymph # (Auto) 0.71 L (1.18-3.74) K/mm3 [place] # (Auto) 0.62 H (0.24-0.36) K/mm3 Eos # (Auto) 0.00 L (0.04-0.36) K/mm3 Baso # (Auto) 0.01 (0.01-0.08) K/mm3 Sodium 137 (136-145) mEq/L Potassium 3.5 (3.5-5.1) mEq/L Chloride 100 (98-107) mEq/L Carbon Dioxide 21 (21-32) mEq/L Anion Gap 19.5 H (5-15) BUN 10 (7-18) mg/dL Creatinine 0.8 (0.55-1.02) mg/dL Est Cr Clr Drug Dosing 96.06 mL/min Estimated GFR (MDRD) > 60 (>60) mL/min BUN/Creatinine Ratio 12.5 L (14-18) Glucose 146 H (70-99) mg/dL Calcium 9.5 (8.5-10.1) mg/dL Total Bilirubin 1.1 H (0.2-1.0) mg/dL AST 11 L (15-37) U/L ALT 18 (14-59) U/L Alkaline Phosphatase 102 (46-116) U/L Total Protein 8.1 (6.4-8.2) g/dl Albumin 4.1 (3.4-5.0) g/dl Globulin 4.0 gm/dL Albumin/Globulin Ratio 1.0 (1-2) Lipase 48 L (73-393) U/L HCG, Qual Negative (NEGATIVE) Meds: Medications Generic Name Dose Route Start Last Admin Trade Name Freq PRN Reason Stop Dose Admin Sodium Chloride 10 ml 08/25/21 17:19 08/25/21 18:24 Sodium Chloride 0.9% 10 Ml Syringe FLUSH 10 ml ASDIRECTED PRN Administration Keep Vein Open Discontinued Medications Generic Name Dose Route Start Last Admin Trade Name Freq PRN Reason Stop Dose Admin Diphenhydramine HCl 50 mg 08/25/21 18:25 08/25/21 18:35 Diphenhydramine 50 Mg/Ml Sdv IVPUSH 08/25/21 18:26 50 mg ONETIME ONE Administration Hydromorphone HCl 1 mg 08/25/21 17:20 08/25/21 18:29 Hydromorphone 1 Mg/Ml Syringe IVPUSH 08/25/21 17:21 Not Given ONETIME ONE Sodium Chloride 1,000 mls @ 1,000 mls/hr 08/25/21 17:19 08/25/21 18:24 Normal Saline IV 08/25/21 18:18 1,000 mls/hr .BOLUS STA Administration Metoclopramide HCl 10 mg 08/25/21 18:55 08/25/21 19:18 Metoclopramide 10 Mg/2 Ml Sdv IVPUSH 08/25/21 18:56 10 mg ONETIME ONE Administration Ondansetron HCl 4 mg 08/25/21 17:19 08/25/21 18:24 Ondansetron 4 Mg/2 Ml Sdv IVPUSH 08/25/21 17:20 4 mg ONETIME ONE Administration - Re-Assessments/Exams Free Text/Narrative Re-Assessment/Exam: 08/25/21 19:57 Was informed by nursing that the patient was fairly insistent on getting her here. I went to talk to the patient she says she is doing better her nausea is well controlled she needs some Zofran and wants out here. We will discharge her I will send a prescription for Zofran to [place] pharmacy in [place]. Patient agrees to return to the emergency room with any questions problems or worsening symptoms. Departure - Departure Time of Disposition: 19:58 Sepsis Event Note (ED) - Focused Exam Vital Signs: Vital Signs Temp Pulse Resp BP Pulse Ox 08/25/21 17:00 36.2 C 88 20 127/86 97
[2021-08-25] MEDS ORDERED: diphenhydrAMINE 50 MG/ML SDV IVPUSH ONE (18:25)
[2021-08-25] MEDS ORDERED: Metoclopramide 10 MG/2 ML SDV IVPUSH ONE (18:55)
== END 2021-08-25 20:09 | disposition home or self-care (01) ==
LOC: JD.ED 16:39
DX: K52.9 Noninfective gastroenteritis and colitis, unspecified (principal)
CPT/HCPCS: 36415; 80053; 83690; 84703; 85025; 96374; 96375; 99284; J1200; J2405; J2765; J7030

== ENCOUNTER 2021-09-11 08:50 | Emergency (ER) | payer BC ==
[2021-09-11 09:30] VITALS: BP 98/80; PULSE 100
[2021-09-11] MEDS ORDERED: Sodium Chloride 0.9% 10 ML Syringe FLUSH PRN (09:31)
[2021-09-11] MEDS ORDERED: Ondansetron 4 MG/2 ML SDV IVPUSH ONE (09:31)
[2021-09-11] MEDS ORDERED: Sodium Chloride 0.9% 1,000 ML IV SCH (09:45)
--- NOTE | 2021-09-11 09:54 | EDM.PDOC ---
ED HPI GENERAL MEDICAL PROBLEM - General Chief Complaint: Gastrointestinal Problem Stated Complaint: VOMITING Time Seen by Provider: 09/11/21 09:32 Source of Information: Reports: Patient History Limitations: Reports: No Limitations - History of Present Illness INITIAL COMMENTS - FREE TEXT/NARRATIVE: The patient presents with nausea, vomiting and diarrhea. This started lat night at about 6pm. She denies having abdominal pain. She has been here a few times for the same. No real reason has been found. She did not eat any bad food and she has not been around anyone who is sick. She had a slight cough last week and she was checked for COVID and that was negative. She has no fever, chills, cough, chest pain or shortness of breath. Onset: Gradual Duration: Day(s): (Yesterday at 6pm) Improves with: Reports: None Worsens with: Reports: None Associated Symptoms: Reports: Nausea/Vomiting. Denies: Chest Pain, Cough, Fever/Chills, Headaches, Shortness of Breath - Related Data Allergies Allergy/AdvReac Type Severity Reaction Status Date / Time No Known Allergies Allergy Verified 06/22/21 19:40 Home Meds: Home Meds medroxyPROGESTERone Acetate [Depo-Provera] 150 mg IM ASDIRECTED 06/19/21 [History] Potassium Chloride 20 meq PO BID #8 packet 06/22/21 [Rx] ondansetron HCL [Zofran] 4 mg SL ASDIRECTED 06/22/21 [History] Ondansetron [Ondansetron ODT] 4 mg PO Q6H #10 tab.rapdis 08/25/21 [Rx] Ondansetron [Zofran ODT] 4 mg PO Q6H PRN #20 tab.dis 09/11/21 [Rx] Past Medical History - Past Health History Medical/Surgical History: Denies Medical/Surgical History - Infectious Disease History Infectious Disease History: Reports: None Social & Family History - Family History Family Medical History: No Pertinent Family History - Caffeine Use Caffeine Use: Reports: Soda, Tea - Living Situation & Occupation Living situation: Reports: Single Occupation: Employed ED ROS GENERAL - Review of Systems Review Of Systems: See Below Constitutional: Reports: No Symptoms HEENT: Reports: No Symptoms Respiratory: Reports: No Symptoms Cardiovascular: Reports: No Symptoms Endocrine: Reports: No Symptoms GI/Abdominal: Reports: Diarrhea, Nausea, Vomiting. Denies: Abdominal Pain : Reports: No Symptoms Musculoskeletal: Reports: No Symptoms ED EXAM, GI/ABD - Physical Exam Exam: See Below Exam Limited By: No Limitations General Appearance: Alert, No Apparent Distress Ears: Normal External Exam Nose: Normal Inspection Head: Atraumatic, Normocephalic Neck: Normal Inspection Respiratory/Chest: No Respiratory Distress, Lungs Clear, Normal Breath Sounds Cardiovascular: Regular Rate, Rhythm, No Edema, No Murmur GI/Abdominal Exam: Soft, Non-Tender, No Organomegaly, No Mass Extremities: Normal Inspection Neurological: Alert, Oriented, No Motor/Sensory Deficits Course - Vital Signs Last Recorded V/S: Last Vital Signs Temp 97.7 F 09/11/21 09:21 Pulse 100 09/11/21 09:21 Resp 20 09/11/21 09:21 BP 98/80 09/11/21 09:21 Pulse Ox 98 09/11/21 09:21 Orthostatic Blood Pressure [ 142/89 Standing] Orthostatic Blood Pressure [ 118/97 Supine] - Orders/Labs/Meds Orders: Active Orders 24 hr Category Date Time Status Communication Order [RC] ASDIRECTED Care 09/11/21 09:32 Active Communication Order [RC] ASDIRECTED Care 09/11/21 09:32 Active Communication Order [RC] ASDIRECTED Care 09/11/21 09:32 Active Communication Order [RC] ASDIRECTED Care 09/11/21 09:32 Active Orthostatic Vital Signs [RC] ASDIRECTED Care 09/11/21 09:32 Active Peripheral IV Care [RC] . DIRECTED Care 09/11/21 09:32 Active Sodium Chloride 0.9% [Saline Flush] Med 09/11/21 09:31 Active 10 ml FLUSH ASDIRECTED PRN Peripheral IV Insertion Adult [OM.PC] Stat Oth 09/11/21 09:32 Ordered Medication Orders Sodium Chloride (Sodium Chloride 0.9% 10 Ml Syringe) 10 ml FLUSH ASDIRECTED PRN PRN Reason: Keep Vein Open Last Admin: 09/11/21 10:08 Dose: 10 ml Documented by: [id number] Labs: Laboratory Tests 09/11/21 09/11/21 09/11/21 Range/Units 10:12 10:12 10:12 WBC 11.43 H (3.98-10.04) K/mm3 RBC 4.81 (3.98-5.22) M/mm3 Hgb 14.5 (11.2-15.7) gm/dl Hct 42.8 (34.1-44.9) % MCV 89.0 (79.4-94.8) fl MCH 30.1 (25.6-32.2) pg MCHC 33.9 (32.2-35.5) g/dl RDW Std Deviation 44.0 (36.4-46.3) fL Plt Count 464 H (182-369) K/mm3 MPV 9.2 L (9.4-12.3) fl Neut % (Auto) 85.0 H (34.0-71.1) % Lymph % (Auto) 9.3 L (19.3-51.7) % [place] % (Auto) 5.2 (4.7-12.5) % Eos % (Auto) 0.1 L (0.7-5.8) Baso % (Auto) 0.1 (0.1-1.2) % Neut # (Auto) 9.72 H (1.56-6.13) K/mm3 Lymph # (Auto) 1.06 L (1.18-3.74) K/mm3 [place] # (Auto) 0.60 H (0.24-0.36) K/mm3 Eos # (Auto) 0.01 L (0.04-0.36) K/mm3 Baso # (Auto) 0.01 (0.01-0.08) K/mm3 Sodium 141 (136-145) mEq/L Potassium 4.3 (3.5-5.1) mEq/L Chloride 103 (98-107) mEq/L Carbon Dioxide 24 (21-32) mEq/L Anion Gap 18.3 H (5-15) BUN 11 (7-18) mg/dL Creatinine 0.8 (0.55-1.02) mg/dL Est Cr Clr Drug Dosing 96.06 mL/min Estimated GFR (MDRD) > 60 (>60) mL/min BUN/Creatinine Ratio 13.8 L (14-18) Glucose 155 H (70-99) mg/dL Calcium 9.4 (8.5-10.1) mg/dL Magnesium 2.1 (1.8-2.4) mg/dL Total Bilirubin 1.6 H (0.2-1.0) mg/dL AST 16 (15-37) U/L ALT 27 (14-59) U/L Alkaline Phosphatase 97 (46-116) U/L C-Reactive Protein 0.3 (<1.0) mg/dL Total Protein 7.7 (6.4-8.2) g/dl Albumin 4.4 (3.4-5.0) g/dl Globulin 3.3 gm/dL Albumin/Globulin Ratio 1.3 (1-2) Lipase 47 L (73-393) U/L HCG, Qual Negative (NEGATIVE) Meds: Medications Generic Name Dose Route Start Last Admin Trade Name Freq PRN Reason Stop Dose Admin Sodium Chloride 10 ml 09/11/21 09:31 09/11/21 10:08 Sodium Chloride 0.9% 10 Ml Syringe FLUSH 10 ml ASDIRECTED PRN Administration Keep Vein Open Discontinued Medications Generic Name Dose Route Start Last Admin Trade Name Freq PRN Reason Stop Dose Admin Diphenhydramine HCl 50 mg 09/11/21 10:15 09/11/21 10:41 Diphenhydramine 50 Mg/Ml Sdv IVPUSH 09/11/21 10:16 50 mg ONETIME ONE Administration Sodium Chloride 1,000 mls @ 999 mls/hr 09/11/21 09:45 09/11/21 10:07 Normal Saline IV 09/11/21 10:44 999 mls/hr Q1H DASHAWN Administration Ondansetron HCl 4 mg 09/11/21 09:31 09/11/21 10:07 Ondansetron 4 Mg/2 Ml Sdv IVPUSH 09/11/21 09:32 4 mg ONETIME ONE Administration - Re-Assessments/Exams Free Text/Narrative Re-Assessment/Exam: 09/11/21 09:55 I ordered an IV NS 1L bolus, zofran and labs. 09/11/21 11:53 Her WBC is elevated at 11.43. Her platelets were elevated at 464. Her anion gap is elevated at 18.3. Her glucose is slightly elevated at 155. Her total bili was elevated at 1.6. Her lipase is negative. Her HCG is normal. She feels much better and would like to go. I will discharge her home. Departure - Departure Time of Disposition: 11:55 Disposition: Home, Self-Care 01 Condition: Good Clinical Impression: Nausea and vomiting Qualifiers: Vomiting type: unspecified Qualified Code(s): R11.2 - Nausea with vomiting, unspecified - Discharge Information *PRESCRIPTION DRUG MONITORING PROGRAM REVIEWED*: Not Applicable *COPY OF PRESCRIPTION DRUG MONITORING REPORT IN PATIENT ROCHELLE: Not Applicable Prescriptions: Ondansetron [Zofran ODT] 4 mg PO Q6H PRN #20 tab.dis PRN Reason: Nausea\vomiting Referrals: PCP,None [Primary Care Provider] - Forms: ED Department Discharge Additional Instructions: Drink plenty of fluids. Take zofran every 6 hours as needed for nausea and vomiting. Follow up with your provider for further work up. Please return if you are worse. Sepsis Event Note (ED) - Focused Exam Vital Signs: Vital Signs Temp Pulse Resp BP Pulse Ox 09/11/21 09:21 97.7 F 100 20 98/80 98 - My Orders Last 24 Hours: My Active Orders 09/11/21 09:31 Sodium Chloride 0.9% [Saline Flush] 10 ml FLUSH ASDIRECTED PRN 09/11/21 09:32 Communication Order [RC] ASDIRECTED Communication Order [RC] ASDIRECTED Communication Order [RC] ASDIRECTED Communication Order [RC] ASDIRECTED Orthostatic Vital Signs [RC] ASDIRECTED Peripheral IV Care [RC] . DIRECTED Peripheral IV Insertion Adult [OM.PC] Stat - Assessment/Plan Last 24 Hours: My Active Orders 09/11/21 09:31 Sodium Chloride 0.9% [Saline Flush] 10 ml FLUSH ASDIRECTED PRN 09/11/21 09:32 Communication Order [RC] ASDIRECTED Communication Order [RC] ASDIRECTED Communication Order [RC] ASDIRECTED Communication Order [RC] ASDIRECTED Orthostatic Vital Signs [RC] ASDIRECTED Peripheral IV Care [RC] . DIRECTED Peripheral IV Insertion Adult [OM.PC] Stat
[2021-09-11] MEDS ORDERED: diphenhydrAMINE 50 MG/ML SDV IVPUSH ONE (10:15)
== END 2021-09-11 12:26 | disposition home or self-care (01) ==
LOC: JD.ED 08:50
DX: R11.2 Nausea with vomiting, unspecified (principal); D72.829 Elevated white blood cell count, unspecified
CPT/HCPCS: 36415; 80053; 83690; 83735; 84703; 85025; 86140; 96374; 96375; 99284; J1200; J2405; J7030

== ENCOUNTER 2023-09-18 13:34 | Emergency (ER) | payer BC, OTHER ==
[2023-09-18] MEDS ORDERED: Ondansetron 4 MG/2 ML SDV IVPUSH ONE (14:07)
[2023-09-18] MEDS ORDERED: Sodium Chloride 0.9% 1,000 ML IV STA (14:07)
[2023-09-18] MEDS ORDERED: Sodium Chloride 0.9% 10 ML Syringe FLUSH PRN (14:07)
[2023-09-18] MEDS ORDERED: HYDROmorphone 0.5 MG/0.5 ML Syringe IVPUSH ONE (14:08)
[2023-09-18 14:37] LABS: BASOPHILS PERCENT AUTO 0.4 % (0.0-1.0); EOSINOPHILS PERCENT AUTO 0.2 % (0.0-6.0); HEMATOCRIT 43.7 % (37.0-47.0); HEMOGLOBIN 15.5 gm/dl (12.0-16.0); IMMATURE GRAN ABSOLUTE AUTO 0.03 K/mm3 (0.00-0.05); IMMATURE GRAN PERCENT AUTO 0.3 % (0.0-0.4); LYMPHOCYTES ABSOLUTE AUTO 0.8 K/mm3 (1.0-4.8); LYMPHOCYTES PERCENT AUTO 7.5 % (24.0-44.0); MEAN CORPUSCULAR HEMOGLOBIN 30.9 pg (28.0-32.0); MEAN CORPUSCULAR HGB CONC 35.5 g/dl (32.0-36.0); MEAN CORPUSCULAR VOLUME 87.1 fl (83.0-99.0); MONOCYTES ABSOLUTE AUTO 0.7 K/mm3 (0.0-0.8); MONOCYTES PERCENT AUTO 6.2 % (0.0-8.0); NEUTROPHILS ABSOLUTE AUTO 9.6 K/mm3 (1.8-7.7); NEUTROPHILS PERCENT AUTO 85.4 % (41.0-71.0); PLATELET COUNT,PLT 301 K/mm3 (150-400); RED BLOOD CELL COUNT 5.02 M/mm3 (4.10-5.30); WHITE BLOOD CELL COUNT,WBC 11.21 K/mm3 (3.9-11.3)
[2023-09-18 15:07] LABS: ANION GAP 18.4 (5-15); BILIRUBIN TOTAL 0.7 mg/dL (0.2-1.0); BUN/CREATININE RATIO 12.5 (14-18); CALCIUM 9.5 mg/dL (8.5-10.1); CREATININE 0.8 mg/dL (0.55-1.02); EST CRCL DRUG DOSING (CG) 94.44 mL/min; POTASSIUM,K 3.4 mEq/L (3.5-5.1); PROTEIN TOTAL,TP 7.9 g/dl (6.4-8.2)
[2023-09-18 15:35] LABS: CORONAVIRUS COVID-19 NAA POSITIVE (NEGATIVE); INFLUENZA A NAA NEGATIVE (NEGATIVE); RESPIRATORY SYNCYTIAL VIR NAA NEGATIVE (NEGATIVE)
[2023-09-18 16:10] VITALS: BP 129/97; PULSE 92
== END 2023-09-18 16:20 | disposition home or self-care (01) ==
LOC: JD.ED 13:34
DX: U07.1 COVID-19 (principal); A08.4 Viral intestinal infection, unspecified
CPT/HCPCS: 0241U; 36415; 80053; 83690; 84703; 85025; 96361; 96374; 96375; 99284; J1170; J2405; J3490; J7030

== ENCOUNTER 2023-10-12 14:32 | Emergency (ER) | payer OTHER ==
[2023-10-12] MEDS ORDERED: Sodium Chloride 0.9% 1,000 ML IV SCH (15:15)
[2023-10-12] MEDS ORDERED: Haloperidol Lactate 5 MG/ML SDV IVPUSH ONE (15:19)
[2023-10-12] MEDS ORDERED: Capsaicin 0.1% Cream 42.5 GM Tube TOP PRN (16:01)
[2023-10-12] MEDS: Sodium Chloride 0.9% 10 ML Syringe FLUSH PRN ×2 (16:09→17:05)
[2023-10-12 16:11] LABS: BASOPHILS ABSOLUTE AUTO 0.1 K/mm3 (0.0-0.2); BASOPHILS PERCENT AUTO 0.3 % (0.0-1.0); EOSINOPHILS PERCENT AUTO 0.1 % (0.0-6.0); HEMATOCRIT 45.9 % (37.0-47.0); IMMATURE GRAN ABSOLUTE AUTO 0.06 K/mm3 (0.00-0.05); IMMATURE GRAN PERCENT AUTO 0.4 % (0.0-0.4); LYMPHOCYTES ABSOLUTE AUTO 1.7 K/mm3 (1.0-4.8); LYMPHOCYTES PERCENT AUTO 11.5 % (24.0-44.0); MEAN CORPUSCULAR HEMOGLOBIN 30.7 pg (28.0-32.0); MEAN CORPUSCULAR HGB CONC 34.9 g/dl (32.0-36.0); MEAN CORPUSCULAR VOLUME 88.1 fl (83.0-99.0); MONOCYTES ABSOLUTE AUTO 0.6 K/mm3 (0.0-0.8); NEUTROPHILS ABSOLUTE AUTO 12.6 K/mm3 (1.8-7.7); NEUTROPHILS PERCENT AUTO 83.7 % (41.0-71.0); PLATELET COUNT,PLT 372 K/mm3 (150-400); RED BLOOD CELL COUNT 5.21 M/mm3 (4.10-5.30); WHITE BLOOD CELL COUNT,WBC 15.02 K/mm3 (3.9-11.3)
[2023-10-12 16:42] LABS: A/G RATIO 0.9 (1-2); ALANINE AMINOTRANSFERASE,ALT 41 U/L (14-59); ALBUMIN 3.8 g/dl (3.4-5.0); ALKALINE PHOSPHATASE 122 U/L (46-116); ANION GAP 18.6 (5-15); ASPARTATE AMNIOTRANSFERASE,AST 31 U/L (15-37); BILIRUBIN TOTAL 0.7 mg/dL (0.2-1.0); BLOOD UREA NITROGEN,BUN 8 mg/dL (7-18); BUN/CREATININE RATIO 11.4 (14-18); CALCIUM 9.7 mg/dL (8.5-10.1); CARBON DIOXIDE,CO2 23 mEq/L (21-32); CHLORIDE,CL 103 mEq/L (98-107); CREATININE 0.7 mg/dL (0.55-1.02); EST CRCL DRUG DOSING (CG) 112.47 mL/min; ESTIMATED GFR 125 mL/min (>60); GLUCOSE RANDOM 107 mg/dL (70-99); POTASSIUM,K 4.6 mEq/L (3.5-5.1); PROTEIN TOTAL,TP 8.1 g/dl (6.4-8.2); SODIUM,NA 140 mEq/L (136-145)
[2023-10-12 16:48] LABS: HCG QUANTITATIVE < 1.0 mIU/mL
[2023-10-12] MEDS ORDERED: diphenhydrAMINE 50 MG/ML SDV IVPUSH ONE (16:50)
[2023-10-12 17:51] LABS: APPEARANCE,URINE CLEAR (Clear); BILIRUBIN,URINE NEGATIVE (Negative); COLOR,URINE YELLOW (Yellow); GLUCOSE,URINE NEGATIVE (Negative); KETONES,URINE 2+ (Negative); LEUKOCYTE ESTERASE,URINE NEGATIVE (Negative); NITRITE,URINE NEGATIVE (Negative); OCCULT BLOOD,URINE TRACE-INTACT (Negative); PH,URINE 5.5 (5.0-8.0); PROTEIN,URINE NEGATIVE (Negative); UROBILINOGEN,URINE 0.2 (0.2-1.0)
[2023-10-12 18:03] LABS: BACTERIA,URINE MANY /hpf (FEW); WBC,URINE 0-5 /hpf (0-5)
[2023-10-12 18:04] LABS: AMORPHOUS SEDIMENT,URINE MODERATE /hpf (NOT SEEN); MUCUS,URINE MANY /hpf (FEW)
[2023-10-12 18:09] VITALS: BP 148/70; PULSE 100
== END 2023-10-12 18:08 | disposition home or self-care (01) ==
LOC: JD.ED 14:32
DX: R11.2 Nausea with vomiting, unspecified (principal)
CPT/HCPCS: 36415; 80053; 81001; 83690; 84702; 85025; 96361; 96374; 96375; 99284; J1200; J1630; J3490; J7030

== ENCOUNTER 2024-06-29 22:57 | Emergency (ER) | payer OTHER ==
[2024-06-29] MEDS: Metoclopramide 10 MG/2 ML SDV IVPUSH ONE (23:34)
[2024-06-29] MEDS: Dextrose 5%-Lactated Ringers 1,000 ML IV SCH (23:35)
[2024-06-30 00:03] LABS: BASOPHILS PERCENT AUTO 0.2 % (0.0-1.0); EOSINOPHILS PERCENT AUTO 0.1 % (0.0-6.0); HEMATOCRIT 41.9 % (37.0-47.0); HEMOGLOBIN 14.4 gm/dl (12.0-16.0); IMMATURE GRAN PERCENT AUTO 0.4 % (0.0-0.4); LYMPHOCYTES ABSOLUTE AUTO 1.2 K/mm3 (1.0-4.8); LYMPHOCYTES PERCENT AUTO 5.1 % (24.0-44.0); MEAN CORPUSCULAR HEMOGLOBIN 30.8 pg (28.0-32.0); MEAN CORPUSCULAR HGB CONC 34.4 g/dl (32.0-36.0); MEAN CORPUSCULAR VOLUME 89.7 fl (83.0-99.0); MEAN PLATELET VOLUME 9.4 fl (9.4-12.3); MONOCYTES ABSOLUTE AUTO 0.4 K/mm3 (0.0-0.8); MONOCYTES PERCENT AUTO 1.8 % (0.0-8.0); NEUTROPHILS PERCENT AUTO 92.4 % (41.0-71.0); PLATELET COUNT,PLT 324 K/mm3 (150-400); RED BLOOD CELL COUNT 4.67 M/mm3 (4.10-5.30); WHITE BLOOD CELL COUNT,WBC 22.76 K/mm3 (3.9-11.3)
[2024-06-30 00:24] LABS: A/G RATIO 1.1 (1-2); ALBUMIN 4.1 g/dl (3.4-5.0); ANION GAP 20.9 (5-15); BILIRUBIN TOTAL 0.8 mg/dL (0.2-1.0); BUN/CREATININE RATIO 13.8 (14-18); CALCIUM 9.6 mg/dL (8.5-10.1); CREATININE 0.8 mg/dL (0.55-1.02); EST CRCL DRUG DOSING (CG) 101.51 mL/min; MAGNESIUM 1.5 mg/dL (1.8-2.4); PROTEIN TOTAL,TP 7.7 g/dl (6.4-8.2)
[2024-06-30 00:36] LABS: POTASSIUM,K 3.9 mEq/L (3.5-5.1)
[2024-06-30 00:38] LABS: LACTIC ACID 2.9 mmol/L (0.4-2.0)
[2024-06-30 00:43] LABS: HEMOGLOBIN A1C 4.9 %
[2024-06-30] MEDS ORDERED: Lactated Ringers 1,000 ML IV SCH (01:00)
[2024-06-30 01:16] LABS: SLIDE REVIEW ABNORMAL SMEAR
[2024-06-30 01:36] VITALS: BP 129/71; PULSE 82
== END 2024-06-30 01:35 | disposition left against medical advice (07) ==
LOC: JD.ED 22:57
DX: K52.9 Noninfective gastroenteritis and colitis, unspecified (principal); E66.9 Obesity, unspecified; Z79.899 Other long term (current) drug therapy; Z68.36 Body mass index [BMI] 36.0-36.9, adult
CPT/HCPCS: 36415; 80053; 82010; 83036; 83605; 83690; 83735; 85025; 96361; 96374; 99284; J2765; J7121

== ENCOUNTER 2024-10-02 22:31 | Emergency (ER) | payer OTHER ==
[2024-10-02] MEDS ORDERED: Sodium Chloride 0.9% 10 ML Syringe FLUSH PRN (23:14)
[2024-10-02] MEDS: Ondansetron 4 MG/2 ML SDV ONE (23:14)
[2024-10-02] MEDS: Sodium Chloride 0.9% 1,000 ML ONE (23:14)
[2024-10-02] MEDS: diphenhydrAMINE 50 MG/ML SDV IVPUSH ONE (23:14)
[2024-10-02 23:20] LABS: BASOPHILS PERCENT AUTO 0.1 % (0.0-1.0); HEMATOCRIT 42.1 % (37.0-47.0); HEMOGLOBIN 14.6 gm/dl (12.0-16.0); IMMATURE GRAN ABSOLUTE AUTO 0.09 K/mm3 (0.00-0.05); IMMATURE GRAN PERCENT AUTO 0.4 % (0.0-0.4); LYMPHOCYTES ABSOLUTE AUTO 0.8 K/mm3 (1.0-4.8); LYMPHOCYTES PERCENT AUTO 4.1 % (24.0-44.0); MEAN CORPUSCULAR HEMOGLOBIN 30.7 pg (28.0-32.0); MEAN CORPUSCULAR HGB CONC 34.7 g/dl (32.0-36.0); MEAN CORPUSCULAR VOLUME 88.6 fl (83.0-99.0); MEAN PLATELET VOLUME 9.3 fl (9.4-12.3); MONOCYTES ABSOLUTE AUTO 0.5 K/mm3 (0.0-0.8); MONOCYTES PERCENT AUTO 2.3 % (0.0-8.0); NEUTROPHILS ABSOLUTE AUTO 19.3 K/mm3 (1.8-7.7); NEUTROPHILS PERCENT AUTO 93.1 % (41.0-71.0); PLATELET COUNT,PLT 365 K/mm3 (150-400); RED BLOOD CELL COUNT 4.75 M/mm3 (4.10-5.30)
[2024-10-02 23:30] LABS: ALBUMIN 3.9 g/dl (3.4-5.0); ANION GAP 20.5 (5-15); BILIRUBIN TOTAL 1.5 mg/dL (0.2-1.0); BUN/CREATININE RATIO 11.1 (14-18); CALCIUM 9.3 mg/dL (8.5-10.1); CREATININE 0.9 mg/dL (0.55-1.02); EST CRCL DRUG DOSING (CG) 83.23 mL/min; MAGNESIUM 1.6 mg/dL (1.8-2.4); POTASSIUM,K 3.5 mEq/L (3.5-5.1); PROTEIN TOTAL,TP 7.9 g/dl (6.4-8.2)
[2024-10-03 00:14] LABS: APPEARANCE,URINE SLT CLOUDY (Clear); BILIRUBIN,URINE NEGATIVE (Negative); COLOR,URINE YELLOW (Yellow); GLUCOSE,URINE NEGATIVE (Negative); KETONES,URINE 4+ (Negative); LEUKOCYTE ESTERASE,URINE NEGATIVE (Negative); NITRITE,URINE NEGATIVE (Negative); OCCULT BLOOD,URINE TRACE-LYSED (Negative); PH,URINE 5.5 (5.0-8.0); PROTEIN,URINE 1+ (Negative); UROBILINOGEN,URINE 0.2 (0.2-1.0)
[2024-10-03 00:20] LABS: BACTERIA,URINE FEW /hpf (FEW); MUCUS,URINE MODERATE /hpf (FEW); RBC,URINE 0-5 /hpf (0-5); WBC,URINE 0-5 /hpf (0-5)
[2024-10-03] MEDS: Haloperidol Lactate 5 MG/ML SDV IVPUSH ONE (00:20)
[2024-10-03] MEDS: Sodium Chloride 0.9% 1,000 ML IV ONE (00:29)
[2024-10-03] MEDS: Sodium Chloride 0.9% 1,000 ML ONE (00:57)
[2024-10-03 01:30] VITALS: BP 125/99; PULSE 80
== END 2024-10-03 01:28 | disposition left against medical advice (07) ==
LOC: JD.ED 22:31
DX: R11.2 Nausea with vomiting, unspecified (principal); D72.829 Elevated white blood cell count, unspecified; E66.9 Obesity, unspecified; Z68.38 Body mass index [BMI] 38.0-38.9, adult; Z79.899 Other long term (current) drug therapy
CPT/HCPCS: 36415; 80053; 81001; 83690; 83735; 84703; 85025; 96361; 96374; 96375; 99284; J1200; J1630; J2405; J7030

== ENCOUNTER 2025-02-23 16:04 | Emergency (ER) | payer OTHER ==
[2025-02-23] MEDS ORDERED: Sodium Chloride 0.9% 10 ML Syringe FLUSH PRN (16:07)
[2025-02-23 16:10] VITALS: BP 152/95; PULSE 80
[2025-02-23] MEDS: Metoclopramide 10 MG/2 ML SDV IVPUSH ONE (16:19)
[2025-02-23] MEDS: Sodium Chloride 0.9% 1,000 ML IV ONE (16:19)
[2025-02-23 16:25] LABS: BASOPHILS PERCENT AUTO 0.3 % (0.0-1.0); EOSINOPHILS PERCENT AUTO 0.2 % (0.0-6.0); HEMATOCRIT 44.4 % (37.0-47.0); HEMOGLOBIN 15.4 gm/dl (12.0-16.0); IMMATURE GRAN ABSOLUTE AUTO 0.05 K/mm3 (0.00-0.05); IMMATURE GRAN PERCENT AUTO 0.4 % (0.0-0.4); LYMPHOCYTES ABSOLUTE AUTO 3.2 K/mm3 (1.0-4.8); LYMPHOCYTES PERCENT AUTO 24.7 % (24.0-44.0); MEAN CORPUSCULAR HEMOGLOBIN 30.9 pg (28.0-32.0); MEAN CORPUSCULAR HGB CONC 34.7 g/dl (32.0-36.0); MEAN PLATELET VOLUME 8.7 fl (9.4-12.3); MONOCYTES ABSOLUTE AUTO 0.5 K/mm3 (0.0-0.8); MONOCYTES PERCENT AUTO 4.2 % (0.0-8.0); NEUTROPHILS ABSOLUTE AUTO 9.1 K/mm3 (1.8-7.7); NEUTROPHILS PERCENT AUTO 70.2 % (41.0-71.0); PLATELET COUNT,PLT 340 K/mm3 (150-400); RED BLOOD CELL COUNT 4.99 M/mm3 (4.10-5.30); WHITE BLOOD CELL COUNT,WBC 12.93 K/mm3 (3.9-11.3)
[2025-02-23 16:43] LABS: A/G RATIO 1.1 (1-2); ALBUMIN 3.8 g/dl (3.4-5.0); ANION GAP 19.2 (5-15); BILIRUBIN TOTAL 0.7 mg/dL (0.2-1.0); BUN/CREATININE RATIO 11.3 (14-18); C-REACTIVE PROTEIN 0.35 mg/dL (<0.30); CALCIUM 9.3 mg/dL (8.5-10.1); CREATININE 0.8 mg/dL (0.55-1.02); EST CRCL DRUG DOSING (CG) 96.73 mL/min; POTASSIUM,K 4.2 mEq/L (3.5-5.1); PROTEIN TOTAL,TP 7.4 g/dl (6.4-8.2)
[2025-02-23] MEDS: diphenhydrAMINE 50 MG/ML SDV IVPUSH ONE (16:50)
[2025-02-23] MEDS: Ondansetron 4 MG/2 ML SDV IVPUSH ONE (16:50)
== END 2025-02-23 16:39 | disposition left against medical advice (07) ==
LOC: JD.ED 16:04
DX: R11.2 Nausea with vomiting, unspecified (principal); E66.9 Obesity, unspecified
CPT/HCPCS: 36415; 80053; 83690; 85025; 86140; 96374; 99284; J2765; J7030; 99283

== ENCOUNTER 2025-02-23 18:39 | Emergency (ER) | payer OTHER ==
[2025-02-23 19:18] VITALS: BP 121/81; PULSE 85
[2025-02-23] MEDS: Haloperidol Lactate 5 MG/ML SDV IVPUSH ONE (20:07)
[2025-02-23] MEDS: diphenhydrAMINE 50 MG/ML SDV IVPUSH ONE (20:07)
[2025-02-23 20:14] LABS: BASOPHILS PERCENT AUTO 0.2 % (0.0-1.0); HEMOGLOBIN 15.6 gm/dl (12.0-16.0); IMMATURE GRAN ABSOLUTE AUTO 0.07 K/mm3 (0.00-0.05); IMMATURE GRAN PERCENT AUTO 0.4 % (0.0-0.4); LYMPHOCYTES ABSOLUTE AUTO 1.5 K/mm3 (1.0-4.8); LYMPHOCYTES PERCENT AUTO 8.9 % (24.0-44.0); MEAN CORPUSCULAR HGB CONC 34.7 g/dl (32.0-36.0); MEAN CORPUSCULAR VOLUME 89.5 fl (83.0-99.0); MEAN PLATELET VOLUME 9.8 fl (9.4-12.3); MONOCYTES ABSOLUTE AUTO 0.5 K/mm3 (0.0-0.8); MONOCYTES PERCENT AUTO 2.7 % (0.0-8.0); NEUTROPHILS PERCENT AUTO 87.8 % (41.0-71.0); PLATELET COUNT,PLT 176 K/mm3 (150-400); RED BLOOD CELL COUNT 5.03 M/mm3 (4.10-5.30); WHITE BLOOD CELL COUNT,WBC 17.11 K/mm3 (3.9-11.3)
[2025-02-23] MEDS: Sodium Chloride 0.9% 2,000 ML IV SCH (20:14)
[2025-02-23 21:26] LABS: ANION GAP 15.7 (5-15); BUN/CREATININE RATIO 12.5 (14-18); CALCIUM 8.9 mg/dL (8.5-10.1); CREATININE 0.8 mg/dL (0.55-1.02); EST CRCL DRUG DOSING (CG) 96.73 mL/min; POTASSIUM,K 3.7 mEq/L (3.5-5.1)
== END 2025-02-23 21:50 | disposition home or self-care (01) ==
LOC: JD.ED 18:39
DX: R11.2 Nausea with vomiting, unspecified (principal); E66.9 Obesity, unspecified; Z68.36 Body mass index [BMI] 36.0-36.9, adult; Z88.8 Allergy status to other drugs, medicaments and biological substances
CPT/HCPCS: 36415; 80048; 84703; 85025; 96361; 96374; 96375; 99284; J1200; J1630; J7030; 99283

== ENCOUNTER 2025-02-24 21:12 | Emergency (ER) | payer OTHER ==
[2025-02-24] MEDS: diphenhydrAMINE 50 MG Cap PO ONE (21:35)
[2025-02-24] MEDS: LORazepam 1 MG Tab PO ONE (22:22)
[2025-02-24 23:14] VITALS: BP 147/83; PULSE 91
== END 2025-02-24 23:10 | disposition home or self-care (01) ==
LOC: JD.ED 21:12
DX: R11.2 Nausea with vomiting, unspecified (principal); R45.1 Restlessness and agitation; T50.905A Adverse effect of unspecified drugs, medicaments and biological substances, initial encounter; E66.9 Obesity, unspecified; Z88.8 Allergy status to other drugs, medicaments and biological substances; Z79.899 Other long term (current) drug therapy; Z68.37 Body mass index [BMI] 37.0-37.9, adult
CPT/HCPCS: 99283; A9270; Q0163

== ENCOUNTER 2025-03-23 01:15 | Emergency (ER) | payer OTHER ==
[2025-03-23 01:46] VITALS: BP 132/80; PULSE 86
[2025-03-23] MEDS: Sodium Chloride 0.9% 1,000 ML IV ONE (02:33)
[2025-03-23] MEDS: Ondansetron 4 MG/2 ML SDV IVPUSH ONE (02:37)
[2025-03-23] MEDS: Sodium Chloride 0.9% 10 ML Syringe FLUSH PRN (02:39)
[2025-03-23 02:47] LABS: BASOPHILS PERCENT AUTO 0.2 % (0.0-1.0); HEMATOCRIT 43.9 % (37.0-47.0); HEMOGLOBIN 15.5 gm/dl (12.0-16.0); IMMATURE GRAN ABSOLUTE AUTO 0.06 K/mm3 (0.00-0.05); IMMATURE GRAN PERCENT AUTO 0.4 % (0.0-0.4); LYMPHOCYTES ABSOLUTE AUTO 1.5 K/mm3 (1.0-4.8); LYMPHOCYTES PERCENT AUTO 10.8 % (24.0-44.0); MEAN CORPUSCULAR HEMOGLOBIN 30.8 pg (28.0-32.0); MEAN CORPUSCULAR HGB CONC 35.3 g/dl (32.0-36.0); MEAN CORPUSCULAR VOLUME 87.1 fl (83.0-99.0); MONOCYTES ABSOLUTE AUTO 0.3 K/mm3 (0.0-0.8); MONOCYTES PERCENT AUTO 1.8 % (0.0-8.0); NEUTROPHILS ABSOLUTE AUTO 12.3 K/mm3 (1.8-7.7); NEUTROPHILS PERCENT AUTO 86.8 % (41.0-71.0); PLATELET COUNT,PLT 341 K/mm3 (150-400); RED BLOOD CELL COUNT 5.04 M/mm3 (4.10-5.30); WHITE BLOOD CELL COUNT,WBC 14.14 K/mm3 (3.9-11.3)
[2025-03-23 03:09] LABS: ANION GAP 18.1 (5-15); BUN/CREATININE RATIO 11.1 (14-18); CALCIUM 9.5 mg/dL (8.5-10.1); CREATININE 0.9 mg/dL (0.55-1.02); EST CRCL DRUG DOSING (CG) 82.51 mL/min; MAGNESIUM 1.5 mg/dL (1.8-2.4); PROTEIN TOTAL,TP 7.9 g/dl (6.4-8.2)
[2025-03-23 03:13] LABS: POTASSIUM,K 4.1 mEq/L (3.5-5.1)
[2025-03-23] MEDS: diphenhydrAMINE 50 MG/ML SDV IVPUSH ONE (03:27)
[2025-03-23] MEDS: Magnesium Oxide 400 MG Tab PO ONE (04:09)
== END 2025-03-23 04:14 | disposition home or self-care (01) ==
LOC: JD.ED 01:15
DX: R11.2 Nausea with vomiting, unspecified (principal); R19.7 Diarrhea, unspecified; E66.9 Obesity, unspecified; Z68.37 Body mass index [BMI] 37.0-37.9, adult; Z88.8 Allergy status to other drugs, medicaments and biological substances
CPT/HCPCS: 36415; 80053; 83735; 84703; 85025; 96361; 96374; 96375; 99284; A9270; J1200; J2405; J7030

== ENCOUNTER 2025-06-21 22:54 | Emergency (ER) | payer OTHER ==
[2025-06-21 23:22] VITALS: BP 137/82; PULSE 96
[2025-06-21] MEDS ORDERED: Sodium Chloride 0.9% 10 ML Syringe FLUSH PRN (23:29)
[2025-06-21] MEDS: Ondansetron 4 MG/2 ML SDV IVPUSH ONE (23:46)
[2025-06-21 23:55] LABS: BASOPHILS ABSOLUTE AUTO 0.0 K/mm3 (0.0-0.2); BASOPHILS PERCENT AUTO 0.2 % (0.0-1.0); EOSINOPHILS ABSOLUTE AUTO 0.0 K/mm3 (0.0-0.4); EOSINOPHILS PERCENT AUTO 0.0 % (0.0-6.0); IMMATURE GRAN ABSOLUTE AUTO 0.06 K/mm3 (0.00-0.05); IMMATURE GRAN PERCENT AUTO 0.3 % (0.0-0.4); LYMPHOCYTES ABSOLUTE AUTO 1.3 K/mm3 (1.0-4.8); LYMPHOCYTES PERCENT AUTO 7.3 % (24.0-44.0); MEAN PLATELET VOLUME 9.4 fl (9.4-12.3); MONOCYTES ABSOLUTE AUTO 0.3 K/mm3 (0.0-0.8); MONOCYTES PERCENT AUTO 1.6 % (0.0-8.0); NEUTROPHILS ABSOLUTE AUTO 16.5 K/mm3 (1.8-7.7); NEUTROPHILS PERCENT AUTO 90.6 % (41.0-71.0); NRBC ABSOLUTE 0.00 (0.00-0.02); NRBC PERCENT 0.0 % (0.0-0.2); PLATELET COUNT,PLT 371 K/mm3 (150-400); RED BLOOD CELL COUNT 4.62 M/mm3 (4.10-5.30); WHITE BLOOD CELL COUNT,WBC 18.19 K/mm3 (3.9-11.3)
[2025-06-22 00:27] LABS: A/G RATIO 1.1 (1-2); ALANINE AMINOTRANSFERASE,ALT 31.0 U/L (14-59); ASPARTATE AMNIOTRANSFERASE,AST 12.0 U/L (15-37); BILIRUBIN TOTAL 0.8 mg/dL (0.2-1.0); BLOOD UREA NITROGEN,BUN 10.0 mg/dL (7-18); CARBON DIOXIDE,CO2 26.0 mEq/L (21-32); CHLORIDE,CL 101.0 mEq/L (98-107); CREATININE 0.9 mg/dL (0.55-1.02); EST CRCL DRUG DOSING (CG) 85.98 mL/min; ESTIMATED GFR 91.0 mL/min (>60); GLUCOSE RANDOM 152.0 mg/dL (70-99); POTASSIUM,K 3.7 mEq/L (3.5-5.1); PROTEIN TOTAL,TP 7.9 g/dl (6.4-8.2); SODIUM,NA 139.0 mEq/L (136-145)
[2025-06-22 00:31] LABS: LACTIC ACID 2.4 mmol/L (0.4-2.0)
[2025-06-22] MEDS: diphenhydrAMINE 50 MG/ML SDV IVPUSH ONE (00:37)
[2025-06-22] MEDS: droPERidol 2.5 MG/ML SDV IV ONE (00:51)
[2025-06-22] MEDS: Magnesium Sulfat/D5W 1GM/100ML 1 GM in Premix Bag 1 BAG IV ONE (00:57)
[2025-06-22 01:07] LABS: APPEARANCE,URINE CLEAR (Clear); GLUCOSE,URINE NEGATIVE (Negative); OCCULT BLOOD,URINE NEGATIVE (Negative)
[2025-06-22 01:13] LABS: EPITHELIAL CELLS,URINE 0-5 /hpf (0-5)
== END 2025-06-22 03:48 | disposition home or self-care (01) ==
LOC: JD.ED 22:54
DX: E86.0 Dehydration (principal); E87.20 Acidosis, unspecified; E83.42 Hypomagnesemia; E66.9 Obesity, unspecified; Z88.8 Allergy status to other drugs, medicaments and biological substances; Z68.37 Body mass index [BMI] 37.0-37.9, adult
CPT/HCPCS: 36415; 80053; 81001; 83605; 83690; 83735; 84703; 85025; 96361; 96365; 96375; 99284; J1200; J1790; J2405; J3475; J7030